=== PATIENT | female | born 2000 | race Caucasian/White ===

== ENCOUNTER 2021-07-31 06:24 | Inpatient (IN) ==
[2021-07-31] MEDS ORDERED: LACTATED RINGERS 1,000 ML IV ONE (08:04)
[2021-07-31] MEDS ORDERED: OXYTOCIN/LR 20 UNIT/1,000 ML BAG IV ONE ×3 (08:04→20:00)
[2021-07-31] MEDS ORDERED: ONDANSETRON 4 MG/2 ML VIAL IV PRN ×2 (08:04→19:15)
[2021-07-31] MEDS ORDERED: CARBOPROST TROMETHAMINE 250 MCG/ML AMP IM PRN (08:04)
[2021-07-31] MEDS ORDERED: METHYLERGONOVINE 0.2 MG/1 ML AMP IM PRN (08:04)
[2021-07-31] MEDS ORDERED: miSOPROStoL 200 MCG TABLET RECTAL PRN (08:04)
[2021-07-31] MEDS ORDERED: TRANEXAMIC ACID 1,000 MG in SODIUM CHLORIDE 0.9% 100 ML IV PRN (08:04)
[2021-07-31] MEDS: LACTATED RINGERS 1,000 ML IV SCH ×2 (08:27→13:32)
[2021-07-31] MEDS ORDERED: OXYTOCIN/LR 20 UNIT/1,000 ML BAG IV SCH (08:30)
[2021-07-31 08:31] LABS: Basophils # 0.1 10*3/uL (0.0-0.2); Basophils % 0.5 % (0.0-0.8); Eosinophils # 0.2 10*3/uL (0.0-0.87); Eosinophils % 1.1 % (0.00-10.9); Hematocrit 31.3 VOL% (35.7-47.0); Hemoglobin 10.2 GM/DL (12.0-16.0); Immature Granulocytes % 2.7 %; Immature Granulocytes Absolute 0.42 #; Lymphocytes # 2.7 10*3/uL (1.4-4.0); Lymphocytes % 17.2 % (21.3-54.2); Mean Corpuscular HGB Conc 32.6 GM/DL (32-36); Mean Corpuscular Volume 86.9 FL (87-102); Mean Platelet Volume 12.5 FL (9.6-12.0); Monocytes # 1.2 10*3/uL (0.11-0.8); Monocytes % 7.6 % (1.7-12.7); Neutrophils % 70.9 % (38.7-73.9); Platelet Count 222 T/CUMM (130-400); Red Cell Distribution Width 12.1 % (9.3-17.3); White Blood Count 15.6 T/CUMM (4-12)
[2021-07-31] MEDS ORDERED: MEPERIDINE 50 MG/1 ML VIAL IV PRN (10:45)
[2021-07-31] MEDS: LABETALOL 100 MG TABLET PO SCH ×2 (11:23→20:32)
[2021-07-31] MEDS ORDERED: diphenhydrAMINE 50 MG/1 ML VIAL IV PRN ×2 (12:38)
[2021-07-31] MEDS ORDERED: NALOXONE 0.4 MG/ML VIAL IV PRN (12:38)
[2021-07-31] MEDS ORDERED: hydrOXYzine HCL 25 MG/1 ML VIAL IM PRN (12:38)
[2021-07-31] MEDS ORDERED: FAMOTIDINE 20 MG/2 ML VIAL IV ONE (13:00)
[2021-07-31] MEDS ORDERED: CITRIC ACID/SODIUM CITRATE 30 ML UDCUP PO ONE (13:00)
[2021-07-31] MEDS ORDERED: ONDANSETRON 4 MG/2 ML VIAL IV ONE (13:00)
[2021-07-31] MEDS ORDERED: fentaNYL 2 MCG/ROPIV 0.2% EPID 100 ML EPIDURAL SCH (13:00)
[2021-07-31] MEDS ORDERED: PROMETHAZINE 25 MG/1 ML VIAL IM ONE (13:00)
[2021-07-31] MEDS: ePHEDrine 50 MG/ML VIAL IV PRN ×2 (14:01→14:04)
[2021-07-31] MEDS ORDERED: TRANEXAMIC ACID 1,000 MG/10 ML VIAL ONE (16:41)
[2021-07-31] MEDS ORDERED: miSOPROStoL 200 MCG TABLET ONE (16:41)
[2021-07-31] MEDS ORDERED: SODIUM CHLORIDE 0.9% 0 ML IV ONE (16:41)
[2021-07-31] MEDS ORDERED: METHYLERGONOVINE 0.2 MG/1 ML AMP ONE (16:42)
[2021-07-31] MEDS ORDERED: CARBOPROST TROMETHAMINE 250 MCG/ML AMP IM ONE (16:42)
[2021-07-31 18:16] LABS: Cord Venous Blood HCO3 19.4 MMOL/L; Cord Venous Blood PCO2 44.3 MMHG; Cord Venous Blood PO2 30.2
[2021-07-31 18:19] LABS: Cord Arterial Blood HCO3 16.8 MMOL/L
[2021-07-31] MEDS ORDERED: WITCH HAZEL PADS 100/JAR TOP PRN (19:15)
[2021-07-31] MEDS ORDERED: LANOLIN 50% CREAM 0.3 OZ TUBE TOP PRN (19:15)
[2021-07-31] MEDS ORDERED: BISACODYL 10 MG SUPP RECTAL PRN (19:15)
[2021-07-31] MEDS ORDERED: ACETAMINOPHEN 325 MG TABLET PO PRN (19:15)
[2021-07-31] MEDS ORDERED: HYDROCORTISONE 2.5% RECTAL CREAM 30 GM TUBE TOP PRN (19:15)
[2021-07-31] MEDS ORDERED: BENZOCAINE 20%/MENTHOL 0.5% SPRAY 56 GM CAN TOP PRN (19:15)
[2021-07-31] MEDS ORDERED: RHO(D) IMMUNE GLOBULIN 300 MCG SYRINGE IM ONE (19:30)
[2021-07-31] MEDS ORDERED: MEASLES/MUMPS/RUBELLA VACCINE 0.5 ML VIAL SUBCUT ONE (19:30)
[2021-07-31] MEDS ORDERED: DIPH/TET/ACEL PERT BOOSTER VACCINE 0.5 ML VIAL IM ONE (19:30)
[2021-07-31] MEDS: DOCUSATE SODIUM 100 MG CAPSULE PO SCH (20:31)
[2021-07-31] MEDS: oxyCODONE/ACETAMINOPHEN 5-325 MG TABLET PO PRN (22:31)
[2021-07-31] MEDS: IBUPROFEN 800 MG TABLET PO PRN (22:32)
[2021-08-01] MEDS: LABETALOL 100 MG TABLET PO SCH ×2 (05:15→09:35)
[2021-08-01] MEDS: oxyCODONE/ACETAMINOPHEN 5-325 MG TABLET PO PRN ×3 (06:04→20:37)
[2021-08-01] MEDS: IBUPROFEN 800 MG TABLET PO PRN ×2 (06:05→13:17)
[2021-08-01 06:39] LABS: Basophils # 0.1 10*3/uL (0.0-0.2); Basophils % 0.3 % (0.0-0.8); Eosinophils # 0.2 10*3/uL (0.0-0.87); Eosinophils % 1.3 % (0.00-10.9); Hematocrit 27.3 VOL% (35.7-47.0); Hemoglobin 8.8 GM/DL (12.0-16.0); Immature Granulocytes % 2.3 %; Immature Granulocytes Absolute 0.35 #; Lymphocytes # 3.1 10*3/uL (1.4-4.0); Lymphocytes % 20.3 % (21.3-54.2); Mean Corpuscular HGB Conc 32.2 GM/DL (32-36); Mean Corpuscular Volume 87.5 FL (87-102); Mean Platelet Volume 12.4 FL (9.6-12.0); Monocytes # 1.4 10*3/uL (0.11-0.8); Monocytes % 9.1 % (1.7-12.7); Neutrophils % 66.7 % (38.7-73.9); Platelet Count 183 T/CUMM (130-400); Red Blood Count 3.12 MC/CUMM (3.8-5.5); Red Cell Distribution Width 12.3 % (9.3-17.3); White Blood Count 15.1 T/CUMM (4-12)
[2021-08-01] MEDS: DOCUSATE SODIUM 100 MG CAPSULE PO SCH ×2 (09:29→20:36)
[2021-08-02] MEDS: oxyCODONE/ACETAMINOPHEN 5-325 MG TABLET PO PRN (02:13)
[2021-08-02] MEDS: IBUPROFEN 800 MG TABLET PO PRN ×2 (02:14→10:28)
[2021-08-02 07:22] VITALS: BP 115/81
[2021-08-02] MEDS ORDERED: MEASLES/MUMPS/RUBELLA VACCINE 0.5 ML VIAL SUBCUT ONE (07:54)
[2021-08-02] MEDS: DOCUSATE SODIUM 100 MG CAPSULE PO SCH (08:43)
[2021-08-02] MEDS ORDERED: IRON (CARBONYL)/VIT C/B12/FA TABLET PO SCH (09:00)
== END 2021-08-02 15:25 | disposition home or self-care (01) | DRG 807 ==
LOC: N.LD 06:24 → N.OB 21:08
PROVIDERS: ADMIT Specialist; ATTEND Specialist